=== PATIENT | male | born 1970 | race Caucasian/White ===

== ENCOUNTER → 2017-11-04 | Outpatient (CLI) | payer BC ==
[~2017-11-04] MED LIST: MELO7.5T5 PO
--- NOTE | 2017-11-04 12:48 | DIAGNOSTIC IMAGING REPORT ---
LUMBAR SPINE W/O CONTRAST HISTORY: Pain. Neuropathy. LOWER BACK PAIN TECHNIQUE: Multiplanar multisequence MRI of the lumbar spine was performed without the use of contrast. COMPARISON: None. FINDINGS: For the purpose of the report the L5-S1 disc space will be located on axial image 24 of 25. Signal characteristics of the vertebral bodies are within normal limits. Significant degenerative disc change L5-S1. Mild disc desiccation throughout the remaining intervertebral disc space levels. L1-L2: No significant central canal or neural foraminal narrowing. L2-L3: No significant central canal or neural foraminal narrowing. L3-L4: No significant central canal or neural foraminal narrowing. L4-L5: No significant central canal or neural foraminal narrowing. L5-S1: Right central disc herniation. Moderate displacement right S1 nerve root with a moderate impact upon the anterior thecal sac. Moderate to rather significant osteophytic narrowing of the neuroforamina bilaterally. Considerable hypertrophy change of the posterior facets. IMPRESSION: 1. Right central disc herniation L5-S1 creating moderate displacement of the right S1 nerve root and moderate impact upon the anterior thecal sac. 2. Considerable osteophytic narrowing of the neuroforamina bilaterally at L5-S1 accentuated by the lateral bulging disc component. 3. The remainder the lumbar spine is unremarkable. The above report was generated using voice recognition software. It may contain grammatical, syntax or spelling errors. Electronically signed by: Rik Samuels M.D. 11/04/2017 12:46 PM Dictated Date/Time: 11/04/2017 12:40 PM
== END | disposition home or self-care (01) ==
LOC: C.MRIBC 11:53
PROVIDERS: ATTEND Physician Assistant Medical
DX: M51.16 Intervertebral disc disorders with radiculopathy, lumbar region (principal); M54.5 Low back pain

== ENCOUNTER 2021-09-20 16:46 | Inpatient (IN) ==
[2021-09-20] MEDS ORDERED: SODIUM CHLORIDE 0.9% 1000ML 1,000 ML IV ONE ×2 (17:17→19:26)
--- NOTE | 2021-09-20 17:17 | Emergency Department Note ---
Impression & Plan Infection of scrotum, Hyperglycemia ED Provider Note Name: ASHLEIGH GIRON Age: 51 Sex: M Arrives Via: Walk-In Informant: Patient ED Provider: Misha Villagomez MD Chief Complaint: Groin infection Impression: As per impressions above Medical Decision Makin-year-old gentleman with no significant past medical history is on no medications arrives for evaluation of a right groin infection. On examination he is a large cellulitis of the right scrotum extending onto the perineum. There is no fluctuance however given location and findings CT was indicated. CT does not reveal any clear abscess but there is quite amount of inflammation. Given these findings I do think that it is reasonable to proceed with IV antibiotics and hospitalization. I did discuss with the urologist who felt this was reasonable. I did reviewed it with the hospitalist who will bring the patient in for further management. Unclear if the hyperglycemia is an acute reaction or whether he has some underlying insulin resistance. I did discuss this with the patient and will be further addressed by hospitalist service. Prior Medical Record and Triage/Nursing Notes reviewed by Me Additional history obtained from chart Differentials: Abscess, cellulitis, Leah's, DVT, sepsis, diabetes, underlying immunosuppression other pathologies. Vital Signs: reviewed and remarkable for tachycardia Interventions: Normal saline bolus, Rocephin 2 g IV Labs:Reviewed and remarkable for mild WBC elevation Imaging:CT with IV contrast reveals infection right scrotum and perineum as per radiologist read below Consults:Dr. Plummer of [facility] urology agrees with Rocephin IV and hospitalization, Dr. Mcqueen of [facility] hospitalist service agrees to evaluate for hospitalization Plan: Disposition:Hospitalization. Condition: Good History of Present Illness:51-year-old male arrives for evaluation of groin swelling. Patient notes 4 to 5 days of increasing swelling in the right groin. Pain with movement worse with walking and sitting. Better with rest. Does note he had a small pustule above his suprapubic region a couple days ago which he popped without issues. He states that he feels some mild illness but otherwise no fevers, chills, nausea, vomiting, abdominal pain, back pain, syncope, chest pain, shortness breath or other symptoms he has had no recent swelling in his legs nor calf pain. Patient denies a history of significant infections other than when he is 10 years old and had pneumonia. He is on no medications daily and takes periodic multivitamins. He denies diabetes or other chronical medical problems. Patient is taken no medications prior to arrival ROS: See above HPI for pertinent positives & negatives. A total of 10 systems r eviewed and were otherwise negative. 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 EYES: No scleral icterus, unremarkable pupils. ENT: Mucous membranes moist, no nasal congestion. NECK: No masses appreciated, nomeningismus, trachea is midline. RESPIRATORY: No dyspnea. Clear to auscultation and equal bilaterally. No wheeze, no rhonchi. CARDIOVASCULAR: Regular rate and rhythm.No murmurs, rubs, gallops appreciated. GASTROINTESTINAL: Abdomen soft, non-tender, no peritonitis.Bowel sounds positive.No masses appreciated. BACK: No midline tenderness, no CVA tenderness : Large 4-6 cm indurated firm swelling right lateral scrotum abuts perineum with cellulitis surrounding. No fluctuance to this. EXTREMITIES: Normal motion all extremities, no cyanosis, no edema. NEUROLOGIC: Alert and oriented, no acute motor or sensory deficits, no focal weakness, cranial nerves grossly intact. SKIN: No rash, no jaundice, no diaphoresis. PSYCH: Appropriate GCS: 15 ED Course: Times/Reassessments: Patient stable and comfortable he is agreeable to hospitalization. 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 Feels Safe at Home: Yes Allergies Allergies Allergy/AdvReac Type Severity Reaction Status Date / Time aspirin Allergy Unknown Verified 09/20/21 21:09 Penicillins Allergy Unknown Verified 09/20/21 21:07 coconut Allergy Hives Unverified 09/20/21 21:07 Home Meds Home Medications Medication Instructions Recorded Confirmed Mariel Do With Vit D 2 tabs PO AMPM 09/20/21 09/20/21 Inno Shred 2 tab PO QAM 09/20/21 09/20/21 Night Shred Black 2 tab PO QPM 09/20/21 09/20/21 cider 2 tab PO AMPM 09/20/21 09/20/21 [id number] 500 mg-100 mcg-300 mg-60 mg tab (Apple Cider Vinegar Plus) Results & Data (ED) Vital Signs Vital Signs - 24 hr 09/20/21 16:46 09/20/21 16:48 09/20/21 18:46 Temperature 35.9 C L Temperature Source Temporal Artery Scan Pulse Rate 101 H Pulse Rate [Apical] 98 H 98 H Pulse Rhythm Regular Pulse Strength Normal Respiratory Rate 20 20 20 Respiratory Effort / Characteristics Non-Labored Spontaneous Non-Labored Spontaneous Non-Labored Spontaneous Respiratory Depth Normal Normal Normal Respiratory Pattern Regular Regular Regular Blood Pressure 173/91 H Blood Pressure [Right Arm] 176/90 H 159/92 H Blood Pressure Mean 118 Blood Pressure Mean [Right Arm] 118 114 Blood Pressure Position Sitting Blood Pressure Position [Right Arm] Sitting Sitting Pulse Oximetry 98 96 95 Oxygen Delivery Method Room Air Room Air Room Air Sepsis Recent Fever Within 48 Hours No Sepsis New/Unexplained Change in Mental Status No Sepsis Action Taken by Nursing No Action Required 09/20/21 20:00 09/20/21 22:00 Temperature Temperature Source Pulse Rate Pulse Rate [Apical] 97 H 98 H Pulse Rhythm Pulse Strength Respiratory Rate 20 20 Respiratory Effort / Characteristics Non-Labored Spontaneous Non-Labored Spontaneous Respiratory Depth Normal Normal Respiratory Pattern Regular Regular Blood Pressure Blood Pressure [Right Arm] 157/90 H 159/92 H Blood Pressure Mean Blood Pressure Mean [Right Arm] 112 114 Blood Pressure Position Blood Pressure Position [Right Arm] Sitting Sitting Pulse Oximetry 98 98 Oxygen Delivery Method Room Air Room Air Sepsis Recent Fever Within 48 Hours Sepsis New/Unexplained Change in Mental Status Sepsis Action Taken by Nursing Laboratory Data Result diagrams: 09/20/21 17:25 09/20/21 17:25 Lab Results 09/20/21 09/20/21 09/20/21 Range/Units 17:15 17:25 17:25 WBC (4.8-10.8) K/uL RBC (4.7-6.1) M/uL Hgb (14.0-18.0) g/dL Hct (42-52) % MCV (80-100) fL MCH (25-34) pg MCHC (32-36) g/dL RDW Std Deviation (36.4-46.3) fL RDW Coeff of Isabel (11.5-14.5) % Plt Count (130-400) K/uL MPV (7.4-10.4) fL Immature Gran % (Auto) % Neut % (Auto) % Lymph % (Auto) % [place] % (Auto) % Eos % (Auto) % Baso % (Auto) % Neut # (Auto) (1.4-6.5) K/uL Lymph # (Auto) (1.2-3.4) K/uL [place] # (Auto) (0.11-0.59) K/uL Eos # (Auto) (0-0.5) K/uL Baso # (Auto) (0-0.2) K/uL Immature Gran # (Auto) (0.00-0.02) K/uL Sodium 135 L (136-145) mmol/L Potassium 3.6 (3.5-5.1) mmol/L Chloride 102 (98-107) mmol/L Carbon Dioxide 26 (21-32) mmol/L Anion Gap 7 (3-11) BUN 12 (6-23) mg/dl Creatinine 0.62 (0.6-1.4) mg/dl Est Cr Clr Drug Dosing 190.4 ml/min Est GFR ( Amer) 134.1 ml/min Est GFR (Non-Af Amer) 115.7 ml/min BUN/Creatinine Ratio 19.4 (10-20) Glucose 236 H (70-99(Fasting)) mg/dl Lactate (0.4-2.0) mmol/L Calcium 8.5 (8.5-10.1) mg/dl Magnesium (1.7-2.4) mg/dl Total Bilirubin (0.2-1.0) mg/dl Direct Bilirubin (0-0.2) mg/dl AST (13-39) U/L ALT (7-52) U/L Alkaline Phosphatase (34-104) U/L C-Reactive Protein 7.25 H (0-0.5) mg/dl Total Protein (6.0-8.3) gm/dl Albumin (3.4-5.0) gm/dl Procalcitonin < 0.05 (0-0.5) ng/ml TSH (0.300-4.500) uIu/ml Urine Color Yellow Urine Appearance Clear (Clear) Urine pH 5.0 (4.5-7.5) Ur Specific [place] > 1.045 H (1.000-1.030) Urine Protein Negative (Negative) Urine Glucose (UA) 3+ H (Negative) Urine Ketones 1+ H (Negative) Urine Blood Negative (Negative) Urine Nitrite Negative (Negative) Urine Bilirubin Negative (Negative) Urine Urobilinogen Negative (Negative) Ur Leukocyte Esterase Negative (Negative) SARS-CoV-2, RNA, NAAT (NEGATIVE) 09/20/21 09/20/21 09/20/21 Range/Units 17:25 17:25 17:25 WBC 12.26 H (4.8-10.8) K/uL RBC 4.75 (4.7-6.1) M/uL Hgb 14.3 (14.0-18.0) g/dL Hct 42.2 (42-52) % MCV 88.8 (80-100) fL MCH 30.1 (25-34) pg MCHC 33.9 (32-36) g/dL RDW Std Deviation 41.1 (36.4-46.3) fL RDW Coeff of Isabel 12.6 (11.5-14.5) % Plt Count 252 (130-400) K/uL MPV 9.7 (7.4-10.4) fL Immature Gran % (Auto) 0.2 % Neut % (Auto) 77.9 % Lymph % (Auto) 11.6 % [place] % (Auto) 8.9 % Eos % (Auto) 1.3 % Baso % (Auto) 0.1 % Neut # (Auto) 9.55 H (1.4-6.5) K/uL Lymph # (Auto) 1.42 (1.2-3.4) K/uL [place] # (Auto) 1.09 H (0.11-0.59) K/uL Eos # (Auto) 0.16 (0-0.5) K/uL Baso # (Auto) 0.01 (0-0.2) K/uL Immature Gran # (Auto) 0.03 H (0.00-0.02) K/uL Sodium (136-145) mmol/L Potassium (3.5-5.1) mmol/L Chloride (98-107) mmol/L Carbon Dioxide (21-32) mmol/L Anion Gap (3-11) BUN (6-23) mg/dl Creatinine (0.6-1.4) mg/dl Est Cr Clr Drug Dosing ml/min Est GFR ( Amer) ml/min Est GFR (Non-Af Amer) ml/min BUN/Creatinine Ratio (10-20) Glucose (70-99(Fasting)) mg/dl Lactate 0.8 (0.4-2.0) mmol/L Calcium (8.5-10.1) mg/dl Magnesium 1.7 (1.7-2.4) mg/dl Total Bilirubin 0.6 (0.2-1.0) mg/dl Direct Bilirubin 0.1 (0-0.2) mg/dl AST 16 (13-39) U/L ALT 21 (7-52) U/L Alkaline Phosphatase 95 (34-104) U/L C-Reactive Protein (0-0.5) mg/dl Total Protein 6.6 (6.0-8.3) gm/dl Albumin 3.9 (3.4-5.0) gm/dl Procalcitonin (0-0.5) ng/ml TSH (0.300-4.500) uIu/ml Urine Color Urine Appearance (Clear) Urine pH (4.5-7.5) Ur Specific [place] (1.000-1.030) Urine Protein (Negative) Urine Glucose (UA) (Negative) Urine Ketones (Negative) Urine Blood (Negative) Urine Nitrite (Negative) Urine Bilirubin (Negative) Urine Urobilinogen (Negative) Ur Leukocyte Esterase (Negative) SARS-CoV-2, RNA, NAAT (NEGATIVE) 09/20/21 09/20/21 Range/Units 17:25 20:54 WBC (4.8-10.8) K/uL RBC (4.7-6.1) M/uL Hgb (14.0-18.0) g/dL Hct (42-52) % MCV (80-100) fL MCH (25-34) pg MCHC (32-36) g/dL RDW Std Deviation (36.4-46.3) fL RDW Coeff of Isabel (11.5-14.5) % Plt Count (130-400) K/uL MPV (7.4-10.4) fL Immature Gran % (Auto) % Neut % (Auto) % Lymph % (Auto) % [place] % (Auto) % Eos % (Auto) % Baso % (Auto) % Neut # (Auto) (1.4-6.5) K/uL Lymph # (Auto) (1.2-3.4) K/uL [place] # (Auto) (0.11-0.59) K/uL Eos # (Auto) (0-0.5) K/uL Baso # (Auto) (0-0.2) K/uL Immature Gran # (Auto) (0.00-0.02) K/uL Sodium (136-145) mmol/L Potassium (3.5-5.1) mmol/L Chloride (98-107) mmol/L Carbon Dioxide (21-32) mmol/L Anion Gap (3-11) BUN (6-23) mg/dl Creatinine (0.6-1.4) mg/dl Est Cr Clr Drug Dosing ml/min Est GFR ( Amer) ml/min Est GFR (Non-Af Amer) ml/min BUN/Creatinine Ratio (10-20) Glucose (70-99(Fasting)) mg/dl Lactate (0.4-2.0) mmol/L Calcium (8.5-10.1) mg/dl Magnesium (1.7-2.4) mg/dl Total Bilirubin (0.2-1.0) mg/dl Direct Bilirubin (0-0.2) mg/dl AST (13-39) U/L ALT (7-52) U/L Alkaline Phosphatase (34-104) U/L C-Reactive Protein (0-0.5) mg/dl Total Protein (6.0-8.3) gm/dl Albumin (3.4-5.0) gm/dl Procalcitonin (0-0.5) ng/ml TSH 2.461 (0.300-4.500) uIu/ml Urine Color Urine Appearance (Clear) Urine pH (4.5-7.5) Ur Specific [place] (1.000-1.030) Urine Protein (Negative) Urine Glucose (UA) (Negative) Urine Ketones (Negative) Urine Blood (Negative) Urine Nitrite (Negative) Urine Bilirubin (Negative) Urine Urobilinogen (Negative) Ur Leukocyte Esterase (Negative) SARS-CoV-2, RNA, NAAT NEGATIVE (NEGATIVE) Administered Medications Discontinued Medications Sodium Chloride (Nss 1000ml) 1,000 mls @ 999 mls/hr IV .Q1H1M ONE Stop: 09/20/21 18:17 Last Infusion: 09/20/21 19:17 Dose: 0 mls/hr Documented by: [id number] Admin: 09/20/21 17:36 Dose: 999 mls/hr Documented by: [id number] Ceftriaxone Sodium (Rocephin) 2,000 mg in 70 mls @ 140 mls/hr IV NOW STA Stop: 09/20/21 19:38 Last Infusion: 09/20/21 20:50 Dose: 0 mls/hr Documented by: [id number] Admin: 09/20/21 19:34 Dose: 140 mls/hr Documented by: [id number] Sodium Chloride (Nss 1000ml) 1,000 mls @ 999 mls/hr IV .Q1H1M ONE Stop: 09/20/21 20:26 Last Infusion: 09/20/21 20:51 Dose: 0 mls/hr Documented by: [id number] Admin: 09/20/21 19:39 Dose: 999 mls/hr Documented by: [id number] Cefepime HCl (Maxipime) 2,000 mg in 20 mls @ 5 mls/min IV NOW STA; Protocol Stop: 09/20/21 21:29 Last Admin: 09/20/21 21:41 Dose: 5 mls/min Documented by: [id number] Insulin Glargine (Insulin Glargine Solostar 100 Units/Ml 3 Ml Pen) 10 units SC NOW STA Stop: 09/20/21 21:22 Last Admin: 09/20/21 22:44 Dose: 10 units Documented by: [id number] Cosigned by: [id number] Ioversol (Optiray 320 100ml) 95 ml IV ONCE ONE Stop: 09/20/21 18:31 Last Admin: 09/20/21 18:33 Dose: 95 ml Documented by: [id number] Ketorolac Tromethamine (Ketorolac Tromethamine 15 Mg/Ml Vial) 15 mg IV NOW ONE Stop: 09/20/21 22:06 Last Admin: 09/21/21 00:08 Dose: 15 mg Documented by: [id number] Lisinopril (Lisinopril 2.5 Mg Tab) 2.5 mg PO ONE STA Stop: 09/20/21 21:27 Last Admin: 09/20/21 22:43 Dose: 2.5 mg Documented by: [id number] Imaging Data Radiologist's Impression: Pelvis CT 09/20/21 17:12 CT pelvis w/IV con only HISTORY: Right scrotal/perineal infection TECHNIQUE: Multiaxial CT images of the pelvis were performed following the intravenous administration of 95 cc of Optiray 320 and reformatted in the sagittal and coronal plane at the workstation by the radiologist. COMPARISON STUDY: None. FINDINGS: There is subcutaneous fat stranding, skin thickening, subcutaneous edema seen within the right scrotum/perineum. No loculated fluid collections to suggest an abscess. No soft tissue gas identified at this time. Mild right inguinal lymphadenopathy which is likely reactive. The bladder is unremarkable. The prostate gland is normal in size. No pelvic free fluid. The visualized loops of bowel show no wall thickening or obstruction. Normal appendix. Small fat- containing umbilical hernia is noted. No fractures within the visualized osseous structures. IMPRESSION: Subcutaneous fat stranding, skin thickening, and subcutaneous edema within the right scrotum/perineum suggestive of a cellulitis. No loculated fluid collections to suggest an abscess. A developing Leah's gangrene is considere d less likely given the lack of soft tissue gas but is not entirely excluded. ACT 112: Negative or not required by law. Electronically signed by: Andi Mckay M.D. 09/20/2021 6:55 PM Chest X-Ray 09/20/21 20:20 XR chest 1V portable HISTORY: sepsis COMPARISON: None. FINDINGS: No pneumothorax. No pleural effusions. The cardiac silhouette is mildly enlarged. No focal lung consolidations to suggest pneumonia. No evidence for pulmonary edema. No acute rib fractures. Degenerative changes seen within the right shoulder. IMPRESSION: Mild cardiomegaly. ACT 112: Negative or not required by law. Electronically signed by: Andi Mckay M.D. 09/20/2021 8:57 PM Discharge Plan Visit Data Chief Complaint: Skin Problem Stated Complaint: ABSCESS IN GROIN AREA,PAINFUL,SWELLING,REF BY FATIMAH ED Provider: Misha Villagomez Discharge Problem: Infection of scrotum, Hyperglycemia Patient Disposition: Admitted As Inpatient Discharge Instructions Interventions: ED Discharge Assessment Last Done: 09/20/21 23:54
[2021-09-20 17:39] LABS: Basophils # (auto) 0.01 K/uL (0-0.2); Basophils % (auto) 0.1 %; Eosinophils # (auto) 0.16 K/uL (0-0.5); Eosinophils % (auto) 1.3 %; Hematocrit (blood only) 42.2 % (42-52); Hemoglobin 14.3 g/dL (14.0-18.0); Immature Granulocytes # (auto) 0.03 K/uL (0.00-0.02); Immature Granulocytes % (auto) 0.2 %; Lymphocytes # (auto) 1.42 K/uL (1.2-3.4); Lymphocytes % (auto) 11.6 %; Mean Corpuscular Hemoglobin 30.1 pg (25-34); Mean Corpuscular Hgb Conc 33.9 g/dL (32-36); Mean Corpuscular Volume 88.8 fL (80-100); Mean Platelet Volume 9.7 fL (7.4-10.4); Monocytes # (auto) 1.09 K/uL (0.11-0.59); Monocytes % (auto) 8.9 %; Neutrophils # (auto) 9.55 K/uL (1.4-6.5); Neutrophils % (auto) 77.9 %; Platelet Count 252 K/uL (130-400); RDW Coefficient of Variation 12.6 % (11.5-14.5); RDW Standard Deviation 41.1 fL (36.4-46.3); Red Blood Count 4.75 M/uL (4.7-6.1); White Blood Count 12.26 K/uL (4.8-10.8)
[2021-09-20 17:47] LABS: Appearance Urine Clear (Clear); Bilirubin Urine Negative (Negative); Blood Urine Negative (Negative); Color Urine Yellow; Glucose Urine UA 3+ (Negative); Ketones Urine 1+ (Negative); Leukocyte Esterase Urine Negative (Negative); Nitrite Urine Negative (Negative); Protein Urine Negative (Negative); Specific Gravity Urine > 1.045 (1.000-1.030); Urobilinogen Urine Negative (Negative)
[2021-09-20 18:01] LABS: BUN Creatinine Ratio 19.4 (10-20); C Reactive Protein 7.25 mg/dl (0-0.5); Calcium 8.5 mg/dl (8.5-10.1); Creatinine Clr Calc Pharmacy 190.4 ml/min; Est GFR (African American) 134.1 ml/min; Est GFR (Non-African American) 115.7 ml/min; Potassium 3.6 mmol/L (3.5-5.1)
[2021-09-20] MEDS ORDERED: OPTIRAY 320 100ml IV ONE (18:30)
--- NOTE | 2021-09-20 18:56 | CT Scan Report ---
CT pelvis w/IV con only HISTORY: Right scrotal/perineal infection TECHNIQUE: Multiaxial CT images of the pelvis were performed following the intravenous administration of 95 cc of Optiray 320 and reformatted in the sagittal and coronal plane at the workstation by the radiologist. COMPARISON STUDY: None. FINDINGS: There is subcutaneous fat stranding, skin thickening, subcutaneous edema seen within the ri ght scrotum/perineum. No loculated fluid collections to suggest an abscess. No soft tissue gas identi fied at this time. Mild right inguinal lymphadenopathy which is likely reactive. The bladder is unrem arkable. The prostate gland is normal in size. No pelvic free fluid. The visualized loops of bowel sh ow no wall thickening or obstruction. Normal appendix. Small fat-containing umbilical hernia is noted . No fractures within the visualized osseous structures. IMPRESSION: Subcutaneous fat stranding, skin thickening, and subcutaneous edema within the right scrotum/perineum suggestive of a cellulitis. No loculated fluid collections to suggest an abscess. A developing Fourn ier's gangrene is considered less likely given the lack of soft tissue gas but is not entirely exclud ed. ACT 112: Negative or not required by law. Electronically signed by: Andi Mckay M.D. 09/20/2021 6:55 PM
[2021-09-20] MEDS ORDERED: cefTRIAXone SODIUM 2,000 MG/70 ML BAG IV STA (19:09)
[2021-09-20 20:24] LABS: Albumin Level 3.9 gm/dl (3.4-5.0); Bilirubin Direct 0.1 mg/dl (0-0.2); Bilirubin,Total 0.6 mg/dl (0.2-1.0); Magnesium 1.7 mg/dl (1.7-2.4); Total Protein 6.6 gm/dl (6.0-8.3)
--- NOTE | 2021-09-20 20:58 | XRay Report ---
XR chest 1V portable HISTORY: sepsis COMPARISON: None. FINDINGS: No pneumothorax. No pleural effusions. The cardiac silhouette is mildly enlarged. No focal lung consolidations to suggest pneumonia. No evidence for pulmonary edema. No acute rib fractures. De generative changes seen within the right shoulder. IMPRESSION: Mild cardiomegaly. ACT 112: Negative or not required by law. Electronically signed by: Andi Mckay M.D. 09/20/2021 8:57 PM
[2021-09-20] MEDS ORDERED: INSULIN GLARGINE SOLOSTAR 100 UNITS/ML 3 ML PEN SC STA (21:21)
[2021-09-20] MEDS ORDERED: CEFEPIME 2,000 MG/20 ML VIAL IV STA (21:26)
[2021-09-20] MEDS ORDERED: lisinopril 2.5 MG TAB PO STA (21:26)
--- NOTE | 2021-09-20 21:53 | History & Physical Report ---
Date of Service September 20, 2021 Assessment & Plan (1) Sepsis: Plan: Secondary to scrotal/perineal infection History manipulation Hypertensive urgency Likely chronic BP elevation given cardiomegaly on CXR Hyperglycemia Likely new onset DM KUSUM on CPAP difficult airway as per records GMF CS, Cefepime, Doxycycline for now Urology consult Re: Scrotal/perineal infection (ER provider already in touch with Dr. Plummer who recommends antibiotic Rx.) N.p.o. after midnight until patient seen by urology in anticipation of any procedure. Baseline EKG, initiate lisinopril for BP control Basal insulin adjusted for n.p.o. status, ISS BG goal 1 10-1 40, check hemoglobi n A1c DVT prophylaxis. Lovenox subcu Full code Patient requesting updates from providers. Ms. Lyric Sofia, contact #[phone]. Text document was generated using [employer] voice recognition software. It may contain grammatical or spelling errors. Kindly contact undersigned for clarification of any documentation item in question. History of Present Illness Chief Complaint: Groin swelling Primary Care Provider: Dr. Sosa History obtained from patient, family, and records. Medical history significant KUSUM on CPAP, difficult airway as per records. 1 week history of painful right groin swelling with some chills. 2 weeks ago patient remembers popping a bump on his groin. Some lightheadedness. No chest pain, no S OB. Patient seen at the weekend clinic today. Right groin/scrotal swelling noted. Patient directed to the ER for evaluation. IV ceftriaxone administered at the ER. 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 Allergies Allergy/AdvReac Type Severity Reaction Status Date / Time aspirin Allergy Unknown Verified 09/20/21 21:09 Penicillins Allergy Unknown Verified 09/20/21 21:07 coconut Allergy Hives Unverified 09/20/21 21:07 Home Medications Medication Instructions Recorded Confirmed Type Mariel Do With Vit D 2 tabs PO AMPM 09/20/21 09/20/21 History Inno Shred 2 tab PO QAM 09/20/21 09/20/21 History Night Shred Black 2 tab PO QPM 09/20/21 09/20/21 History cider 2 tab PO AMPM 09/20/21 09/20/21 History pxmxeko-Lz-hzxeypudjvadpifs-tea 500 mg-100 mcg-300 mg-60 mg tab (Apple Cider Vinegar Plus) Past Med/Surg History Medical History (Updated 09/21/21 @ 03:51 by Jaskaran Nieves MD) Myofascial pain Social History Smoking Status: Never smoker Second Hand Exposure: No; Do You Dip or Chew Tobacco: No; Tobacco Cessation Education Requested by Patient: No Hx Alcohol Use: Yes Alcohol type: beer Hx Substance Use: No Preferred Language: Romanian Communication Ability: Effective Visual Impairment: No Limitations Hearing Ability: Normal Sfdc Architect Required: No Beliefs That Will Affect Care: None marital status: Current Living Situation: Spouse current occupational status: employed 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 Other Information That Helps Us Care for You: No Feels Safe at Home: Yes Safety Concerns: Feels Safe At This Time Assistive Devices: None Review of Systems Review of Systems: As per HPI, all 10 systems reviewed, all other ROS negative Physical Exam Physical Exam: GENERAL: Slightly anxious, morbidly obese, no respiratory distress SKIN: Normal color, warm HEENT: Seltzer palpebral conjunctivae, no ptosis, moist buccal mucosa NECK : Supple, short neck, no tenderness CHEST : CTA, no tenderness HEART : RRR, no obvious murmurs ABDOMEN: distention, nontender : Tender right perineal/scrotal swelling EXTREMITIES : Minimal LE swelling, no LE tenderness, no other conspicuous deformities noted NEUROLOGIC : Coherent, no facial asymmetry, no other gross focality Results & Data Results & Data ([facility]) Vital Signs (Past 12 Hours) Vital Signs Temp Pulse Pulse Resp BP BP Pulse Ox 09/20/21 20:00 97 H 20 157/90 H 98 09/20/21 18:46 98 H 20 159/92 H 95 09/20/21 16:48 35.9 C L 101 H 20 173/91 H 96 09/20/21 16:46 98 H 20 176/90 H 98 Laboratory Results Laboratory Results WBC 12.26 K/uL (4.8-10.8) H 09/20/21 17:25 RBC 4.75 M/uL (4.7-6.1) 09/20/21: Hgb 14.3 g/dL (14.0-18.0) 09/20/21: Hct 42.2 % (42-52) 09/20/21: MCV 88.8 fL (80-100) 09/20/21: MCH 30.1 pg (25-34) 09/20/21: MCHC 33.9 g/dL (32-36) 09/20/21: RDW Std Deviation 41.1 fL (36.4-46.3) 09/20/21 RDW Coeff of Isabel 12.6 % (11.5-14.5) 09/20/21: Plt Count 252 K/uL (130-400) 09/20/21: MPV 9.7 fL (7.4-10.4) 09/20/21: Immature Gran % (Auto) 0.2 % 09/20/21: Neut % (Auto) 77.9 % 09/20/21: Lymph % (Auto) 11.6 % 09/20/21: [place] % (Auto) 8.9 % 09/20/21: Eos % (Auto) 1.3 % 09/20/21: Baso % (Auto) 0.1 % 09/20/21: Neut # (Auto) 9.55 K/uL (1.4-6.5) H 09/20/21: Lymph # (Auto) 1.42 K/uL (1.2-3.4) 09/20/21: [place] # (Auto) 1.09 K/uL (0.11-0.59) H 09/20/21: Eos # (Auto) 0.16 K/uL (0-0.5) 09/20/21: Baso # (Auto) 0.01 K/uL (0-0.2) 09/20/21: Immature Gran # (Auto) 0.03 K/uL (0.00-0.02) H 09/20/21: Sodium 135 mmol/L (136-145) L 09/20/21 17:25 Potassium 3.6 mmol/L (3.5-5.1) 09/20/21 17:25 Chloride 102 mmol/L (98-107) 09/20/21 17:25 Carbon Dioxide 26 mmol/L (21-32) 09/20/21 17:25 Anion Gap 7 (3-11) 09/20/21 17:25 BUN 12 mg/dl (6-23) 09/20/21 17:25 Creatinine 0.62 mg/dl (0.6-1.4) 09/20/21 17:25 Est Cr Clr Drug Dosing 190.4 ml/min 09/20/21 17:25 Est GFR ( Amer) 134.1 ml/min 09/20/21 17:25 Est GFR (Non-Af Amer) 115.7 ml/min 09/20/21 17:25 BUN/Creatinine Ratio 19.4 (10-20) 09/20/21 17:25 Glucose 236 mg/dl (70-99(Fasting)) H 09/20/21 17:25 Lactate 0.8 mmol/L (0.4-2.0) 09/20/21 17:25 Calcium 8.5 mg/dl (8.5-10.1) 09/20/21 17:25 Magnesium 1.7 mg/dl (1.7-2.4) 09/20/21 17:25 Total Bilirubin 0.6 mg/dl (0.2-1.0) 09/20/21 17:25 Direct Bilirubin 0.1 mg/dl (0-0.2) 09/20/21 17:25 AST 16 U/L (13-39) 09/20/21 17:25 ALT 21 U/L (7-52) 09/20/21 17:25 Alkaline Phosphatase 95 U/L (34-104) 09/20/21 17:25 C-Reactive Protein 7.25 mg/dl (0-0.5) H 09/20/21 17:25 Total Protein 6.6 gm/dl (6.0-8.3) 09/20/21 17:25 Albumin 3.9 gm/dl (3.4-5.0) 09/20/21 17:25 Procalcitonin < 0.05 ng/ml (0-0.5) 09/20/21 17:25 TSH 2.461 uIu/ml (0.300-4.500) 09/20/21 17:25 Urine Color Yellow 09/20/21 17:15 Urine Appearance Clear (Clear) 09/20/21 17:15 Urine pH 5.0 (4.5-7.5) 09/20/21 17:15 Ur Specific [place] > 1.045 (1.000-1.030) H 09/20/21 17:15 Urine Protein Negative (Negative) 09/20/21 17:15 Urine Glucose (UA) 3+ (Negative) H 09/20/21 17:15 Urine Ketones 1+ (Negative) H 09/20/21 17:15 Urine Blood Negative (Negative) 09/20/21 17:15 Urine Nitrite Negative (Negative) 09/20/21 17:15 Urine Bilirubin Negative (Negative) 09/20/21 17:15 Urine Urobilinogen Negative (Negative) 09/20/21 17:15 Ur Leukocyte Esterase Negative (Negative) 09/20/21 17:15 SARS-CoV-2, RNA, NAAT NEGATIVE (NEGATIVE) 09/20/21 20:[address] 09/20/21 17:12 CT pelvis w/IV con only HISTORY: Right scrotal/perineal infection TECHNIQUE: Multiaxial CT images of the pelvis were performed following the intravenous administration of 95 cc of Optiray 320 and reformatted in the sagittal and coronal plane at the workstation by the radiologist. COMPARISON STUDY: None. FINDINGS: There is subcutaneous fat stranding, skin thickening, subcutaneous edema seen within the right scrotum/perineum. No loculated fluid collections to suggest an abscess. No soft tissue gas identified at this time. Mild right inguinal lymphadenopathy which is likely reactive. The bladder is unremarkable. The prostate gland is normal in size. No pelvic free fluid. The visualized loops of bowel show no wall thickening or obstruction. Normal appendix. Small fat- containing umbilical hernia is noted. No fractures within the visualized osseous structures. IMPRESSION: Subcutaneous fat stranding, skin thickening, and subcutaneous edema within the right scrotum/perineum suggestive of a cellulitis. No loculated fluid collections to suggest an abscess. A developing Leah's gangrene is considered less likely given the lack of soft tissue gas but is not entirely excluded. ACT 112: Negative or not required by law. Electronically signed by: Andi Mckay M.D. 09/20/2021 6:55 PM Chest X-Ray 09/20/21 20:20 XR chest 1V portable HISTORY: sepsis COMPARISON: None. FINDINGS: No pneumothorax. No pleural effusions. The cardiac silhouette is mildly enlarged. No focal lung consolidations to suggest pneumonia. No evidence for pulmonary edema. No acute rib fractures. Degenerative changes seen within the right shoulder. IMPRESSION: Mild cardiomegaly. ACT 112: Negative or not required by law. Electronically signed by: Andi Mckay M.D. 09/20/2021 8:57 PM
[2021-09-20] MEDS ORDERED: DOXYCYCLINE HYCLATE 100 MG in DEXTROSE 5% 100 ML IV STA (21:57)
[2021-09-20] MEDS ORDERED: KETOROLAC TROMETHAMINE 15 MG/ML VIAL IV ONE (22:05)
[2021-09-21] MEDS ORDERED: GLUCOSE 40% GEL 15 GM TUBE PO PRN (00:01)
[2021-09-21] MEDS ORDERED: DEXTROSE 50% 50 ML SYRINGE IV PRN (00:01)
[2021-09-21] MEDS ORDERED: GLUCOSE 10 TABS/TUBE PO PRN (00:01)
[2021-09-21] MEDS ORDERED: PROMETHAZINE HCL 12.5 MG in SODIUM CHLORIDE 0.9% 50 ML IV PRN (00:01)
[2021-09-21] MEDS ORDERED: GLUCAGON FOR INJ 1 MG VIAL SQ PRN (00:01)
[2021-09-21] MEDS ORDERED: LORazepam 0.5 MG/1 ML VIAL IV PRN (00:01)
[2021-09-21] MEDS ORDERED: traMADol HCL 50 MG TABLET PO PRN (00:01)
[2021-09-21] MEDS ORDERED: CARBOHYDRATES FOR HYPOGLYCEMIA PO PRN (00:01)
[2021-09-21] MEDS ORDERED: ACETAMINOPHEN 325 MG TAB PO PRN (00:01)
[2021-09-21] MEDS ORDERED: MoRPHine SULFATE 4 MG/ML 1 ML CARP\\VIAL IV PRN ×2 (00:01→08:33)
[2021-09-21] MEDS: LACTATED RINGER'S 1,000 ML IV SCH ×2 (00:15→17:12)
[2021-09-21] MEDS: INSULIN ASPART PER UNIT SC SCH ×5 (00:47→22:21)
[2021-09-21] MEDS ORDERED: INSULIN GLARGINE SOLOSTAR 100 UNITS/ML 3 ML PEN SC STA (03:43)
[2021-09-21] MEDS: KETOROLAC TROMETHAMINE 10 MG TABLET PO PRN ×2 (08:29→20:49)
[2021-09-21] MEDS ORDERED: ACETAMINOPHEN 1000 MG/100 ML IV IV PRN (08:32)
[2021-09-21] MEDS ORDERED: ACETAMINOPHEN 1,000 MG/100 ML VIAL IV PRN (08:45)
[2021-09-21 09:35] LABS: Basophils # (auto) 0.01 K/uL (0-0.2); Basophils % (auto) 0.1 %; Eosinophils # (auto) 0.18 K/uL (0-0.5); Eosinophils % (auto) 1.9 %; Hematocrit (blood only) 39.1 % (42-52); Immature Granulocytes # (auto) 0.02 K/uL (0.00-0.02); Immature Granulocytes % (auto) 0.2 %; Lymphocytes # (auto) 1.34 K/uL (1.2-3.4); Lymphocytes % (auto) 14.3 %; Mean Corpuscular Hemoglobin 29.9 pg (25-34); Mean Corpuscular Hgb Conc 33.2 g/dL (32-36); Mean Corpuscular Volume 89.9 fL (80-100); Monocytes # (auto) 0.97 K/uL (0.11-0.59); Monocytes % (auto) 10.3 %; Neutrophils # (auto) 6.86 K/uL (1.4-6.5); Neutrophils % (auto) 73.2 %; Platelet Count 233 K/uL (130-400); RDW Coefficient of Variation 12.8 % (11.5-14.5); RDW Standard Deviation 42.4 fL (36.4-46.3); Red Blood Count 4.35 M/uL (4.7-6.1); White Blood Count 9.38 K/uL (4.8-10.8)
[2021-09-21] MEDS: ENOXAPARIN INJ 40 MG/0.4 ML SYR SQ SCH (09:35)
[2021-09-21] MEDS: DOXYCYCLINE HYCLATE 100 MG CAP PO SCH ×2 (09:35→20:45)
[2021-09-21] MEDS: CEFEPIME 2,000 MG in SYRINGE 0 ML IV SCH ×2 (09:36→22:22)
[2021-09-21 09:55] LABS: BUN Creatinine Ratio 21.3 (10-20); Calcium 7.8 mg/dl (8.5-10.1); Creatinine Clr Calc Pharmacy 194.1 ml/min; Est GFR (Non-African American) 116.4 ml/min; Potassium 3.4 mmol/L (3.5-5.1)
[2021-09-21] MEDS ORDERED: POTASSIUM CHLORIDE CRTAB 20 MEQ TABCR PO ONE (10:02)
--- NOTE | 2021-09-21 10:16 | Urology Consultation ---
Date of Consultation September 21, 2021 Assessment & Plan (1) Cellulitis: Cellulitis of the perineum Physical evaluation reveals that this is predominantly in the perineum and does not really involve the scrotum, regardless, this seems to be a cellulitis not an drainable abscess nor any concern for active Leah's gangrene I suspect that undiagnosed diabetes is a contributor, particularly as he has had other skin infections in the past We discussed timeframe for expected improvementlikely several days to a week before he entirely has relief of symptoms Discussed the need for continued antibiotic management as well as tight blood glucose control There is no surgical intervention indicated for this as it is a simple skin infection It does not involve any significant urinary structures We will defer to the hospitalist for the remainder of management unless there is a significant change, please call us if any issues History of Present Illness Attending Physician: Magnus Abdullahi MD History of Present Illness 51-year-old male who presented to the emergency room with discomfort in his perineum with palpable swelling No fevers or chills Overall reports that he is in good health, however he has had persistently elevated blood glucose levels since arrivalsuspicion of undiagnosed diabetes He has a prior history of and skin infections and abscesses including one in the right axillary area and a prior infection of the groin which spontaneously resolved Allergies Allergy/AdvReac Type Severity Reaction Status Date / Time aspirin Allergy Unknown Verified 09/20/21 21:09 Penicillins Allergy Unknown Verified 09/20/21 21:07 coconut Allergy Hives Unverified 09/20/21 21:07 Home Medications Medication Instructions Recorded Confirmed Type Mariel Do With Vit D 2 tabs PO AMPM 09/20/21 09/20/21 History Inno Shred 2 tab PO QAM 09/20/21 09/20/21 History Night Shred Black 2 tab PO QPM 09/20/21 09/20/21 History cider 2 tab PO AMPM 09/20/21 09/20/21 History awxxinm-Ql-nzotkpwnxtisneui-tea 500 mg-100 mcg-300 mg-60 mg tab (Apple Cider Vinegar Plus) Patient History Medical History Myofascial pain Social History Smoking Status: Never smoker Second Hand Exposure: No; Do You Dip or Chew Tobacco: No; Tobacco Cessation Education Requested by Patient: No Hx Alcohol Use: Yes Alcohol type: beer Hx Substance Use: No Preferred Language: Indonesian Communication Ability: Effective Visual Impairment: No Limitations Hearing Ability: Normal Media Traffic Manager Required: No Beliefs That Will Affect Care: None marital status: Current Living Situation: Spouse current occupational status: employed 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 Other Information That Helps Us Care for You: No Feels Safe at Home: Yes Safety Concerns: Feels Safe At This Time Assistive Devices: Glasses Review of Systems Constitutional: no fever, no chills and no fatigue Eyes: no worsening vision Ear, Nose, Mouth, Throat: no facial pain and no pain with swallowing Respiratory: no cough and no dyspnea Cardiovascular: no chest pain and no palpitations Gastrointestinal: no abdominal pain, no nausea and no vomiting Musculoskeletal: no back pain Integumentary: no rash and no urticaria He does have erythema and swelling of the perineumright greater than left Neurologic: no gait abnormality and no unsteadiness Psychiatric: no behavioral changes and no depression Endocrine: no fatigue Physical Exam Physical Exam: Radiation and mild erythema of the perineum, right greater than left, area of induration is approximately 2 cm in width by 7 cm in length, there is no fluctuance there is no discharge, there is no crepitus This does not really extend onto the scrotum There does not appear to be any skin breakdown or necrosis There is no drainable collection Constitutional: well developed and well nourished Neck: neck nontender Respiratory: normal respiratory effort; no respiratory distress and does not use accessory muscles Cardiovascular: Rate/Rhythm: regular rate Vessels: radial pulses present Extremities: no edema Gastrointestinal (Abdomen): Inspection/Auscultation: abdomen normal to inspection Percussion/Palpation: abdomen soft; abdomen nontender and no guarding Musculoskeletal: Head/Neck/Chest: normocephalic and head atraumatic Extremities: extremities normal to inspection Skin: no rashes and no lesions Trauma: no evidence of skin trauma Neurologic: awake; not obtunded Speech / Cognition: normal speech Motor/Sensory: no tremor Psychiatric: Orientation: alert and oriented x 3 Genitourinary: no CVA tenderness Lymphatic: no lymphadenopathy Results & Data ([facility]) Vital Signs (Past 12 Hours) Vital Signs Temp Pulse Pulse Resp BP BP Pulse Ox 09/21/21 07:30 36.7 C 98 H 20 151/83 H 94 09/21/21 03:45 98 H 116/66 09/20/21 23:30 36.6 C 107 H 18 178/95 H 98 PG Care Time/CCT Total # of Minutes Spent Total Time Spent with Patient: Total time spent is greater than 50% in coordination of care (as documented) at patient's floor/unit and/or counseling patient: Coding Level of Care Code 74182 Inpt Consult Level 4 Diagnoses Cellulitis L03.90
[2021-09-21] MEDS ORDERED: Nursing to Pharmacy Communication SCH (11:45)
--- NOTE | 2021-09-21 14:53 | Hospitalist Progress Note ---
Date of Service September 21, 2021 Assessment & Plan (1) Sepsis: Plan: Scrotal/perineal Cellulitis --Pelvic CT:Subcutaneous fat stranding, skin thickening, and subcutaneous edema within the right scrotum/perineum suggestive of a cellulitis. No loculated fluid collections to suggest an abscess. A developing Leah's gangrene is considered less likely given the lack of soft tissue gas but is not entirely excluded. --Blood Culture:Pending Continue cefepime, doxycycline Continue IV fluids Pain control Appreciate urology input Hypertensive urgency Situational secondary to pain Vs chronic given Cardiomegaly/KUSUM Not on any meds at home Started on Lisinopril Hyperglycemia Likely new onset DM HbA1C Pending Continue Insulin Monitor BGs KUSUM on CPAP DVT Px: Lovenox SQ Code Status Full code Admission and Anticipated Discharge Date Admission Date: September 20, 2021 Subjective Patient is seen and examined at bedside Reports having scrotal pain Denies any chest pain, , dizziness, nausea, abd pain Offers no other complaints Review of Systems Review of Systems: All systems reviewed & are unremarkable except as noted in Subjective Physical Exam Physical Exam: Physical Exam: Vitals signs as noted above General Appearance:Morbid obese, no apparent distress Head: normocephalic, Atraumatic Eyes: normal inspection, EOMI Neck: supple, Trachea midline Respiratory/Chest: Normal breath sounds, CTA Cardiovascular: S1, S2, No murmur Abdomen/GI:Soft, Non tender, Bowel sounds present :Scrotal erythema, tender Extremities/Musculoskeletal:normal inspection, no edema Neurologic/Psych:AAOX3, grossly no focal neurological deficits Skin: normal color, warm Results & Data Results & Data ([facility]) Vital Signs (Past 12 Hours) Vital Signs Temp Pulse Pulse Resp BP BP Pulse Ox 09/21/21 07:30 36.7 C 98 H 20 151/83 H 94 09/21/21 03:45 98 H 116/66 Laboratory Results Short CBC 09/20/21 09/21/21 Range/Units 17:25 08:44 WBC 12.26 H 9.38 (4.8-10.8) K/uL Hgb 14.3 13.0 L (14.0-18.0) g/dL Hct 42.2 39.1 L (42-52) % Plt Count 252 233 (130-400) K/uL BMP 09/20/21 09/21/21 17:25 08:44 Sodium 135 L 136 Potassium 3.6 3.4 L Chloride 102 107 Carbon Dioxide 26 24 BUN 12 13 Creatinine 0.62 0.61 Glucose 236 H 231 H Calcium 8.5 7.8 L Liver Function 09/20/21 Range/Units 17:25 Total Bilirubin 0.6 (0.2-1.0) mg/dl Direct Bilirubin 0.1 (0-0.2) mg/dl AST 16 (13-39) U/L ALT 21 (7-52) U/L Alkaline Phosphatase 95 (34-104) U/L Albumin 3.9 (3.4-5.0) gm/dl Urine 09/20/21 Range/Units 17:15 Urine Color Yellow Urine Appearance Clear (Clear) Urine pH 5.0 (4.5-7.5) Ur Specific [place] > 1.045 H (1.000-1.030) Urine Protein Negative (Negative) Urine Glucose (UA) 3+ H (Negative)
[2021-09-21] MEDS ORDERED: LACTATED RINGER'S 1,000 ML IV ONE (19:36)
[2021-09-21] MEDS ORDERED: INSULIN GLARGINE SOLOSTAR 100 UNITS/ML 3 ML PEN SC SCH (21:00)
[2021-09-21] MEDS: INSULIN GLARGINE SOLOSTAR 100 UNITS/ML 3 ML PEN SC SCH (22:21)
[2021-09-22 06:38] LABS: Hematocrit (blood only) 38.8 % (42-52); Hemoglobin 12.9 g/dL (14.0-18.0); Mean Corpuscular Hemoglobin 29.9 pg (25-34); Mean Corpuscular Hgb Conc 33.2 g/dL (32-36); Mean Corpuscular Volume 89.8 fL (80-100); Mean Platelet Volume 9.7 fL (7.4-10.4); Platelet Count 220 K/uL (130-400); RDW Coefficient of Variation 12.6 % (11.5-14.5); RDW Standard Deviation 41.1 fL (36.4-46.3); Red Blood Count 4.32 M/uL (4.7-6.1); White Blood Count 8.64 K/uL (4.8-10.8)
[2021-09-22 06:57] LABS: BUN Creatinine Ratio 21.7 (10-20); Creatinine Clr Calc Pharmacy 197.3 ml/min; Est GFR (African American) 135.9 ml/min; Est GFR (Non-African American) 117.2 ml/min; Potassium 3.5 mmol/L (3.5-5.1)
[2021-09-22 07:32] LABS: Estimated Average Glucose 286 mg/dl; Hemoglobin A1C 11.6 % (4.5-5.6)
[2021-09-22] MEDS ORDERED: lisinopril 5 MG TAB PO SCH (09:00)
[2021-09-22] MEDS: DOXYCYCLINE HYCLATE 100 MG CAP PO SCH (09:06)
[2021-09-22] MEDS: ENOXAPARIN INJ 40 MG/0.4 ML SYR SQ SCH (09:07)
[2021-09-22] MEDS: INSULIN GLARGINE SOLOSTAR 100 UNITS/ML 3 ML PEN SC SCH (09:07)
[2021-09-22] MEDS: INSULIN ASPART PER UNIT SC SCH ×3 (09:08→17:55)
[2021-09-22] MEDS: CEFEPIME 2,000 MG in SYRINGE 0 ML IV SCH (10:07)
--- NOTE | 2021-09-22 16:26 | Discharge Summary ---
Date of Service September 22, 2021 Admission HPI Per Admitting Provider History obtained from patient, family, and records. Medical history significant KUSUM on CPAP, difficult airway as per records. 1 week history of painful right groin swelling with some chills. 2 weeks ago patient remembers popping a bump on his groin. Some lightheadedness. No chest pain, no S OB. Patient seen at the weekend clinic today. Right groin/scrotal swelling noted. Patient directed to the ER for evaluation. IV ceftriaxone administered at the ER. 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 Data Allergies Allergy/AdvReac Type Severity Reaction Status Date / Time aspirin Allergy Unknown Verified 09/20/21 21:09 Penicillins Allergy Unknown Verified 09/20/21 21:07 coconut Allergy Hives Unverified 09/20/21 21:07 Consultations 09/20/21 19:28 ED Decision to Admit Stat 09/21/21 00:01 Consult Urology Routine Ordered Studies 09/20/21 17:12 CT pelvis w/IV con only Stat Home Health Attestation I certify that this patient is under my care and that I, or a physicians assistant athletic trainer working with me, had a face to-face encounter that meets the home health [id number] encounter requirements with this patient. The encounter with the patient was in whole, or in part, for the following medical condition, which is the primary reason for home health care (list medical condition): I certify that, based on my findings, the following services are medically necessary home health services: My clinical findings support the need for the above services because: Further, I certify that my clinical findings support that this patient is homebound (i.e. absences from home require considerable and taxing effort and are for medical reasons or baptist services or infrequently or of short duration when for other reasons) because: Certification for Home Health Services: Based on the above findings, I certify that this patient is confined to the home and needs intermittent longterm care, physical therapy and/or speech therapy or continues to need occupational therapy. The patient is under my care, and I have initiated the establishment of the plan of care. This patient will be followed by a physician who will periodically review the plan of care. Discharge Plan Discharge Items Patient Disposition: Home - Self-Care Reason For Visit: Cellulitis Discharge Diagnosis: Groin cellulitis Newly Diagnosed Diabetes, uncontrolled Sepsis, present on admission. Treated and resolved Obesity Condition on Discharge: Good Health Concerns: Diet, weight loss Diabetes Management (newly diagnosed) HTN management (newly diagnosed) Activity: Resume your previous activity Bathing Comment: Wash wound with soap and water. Do NOT soak in tap water. Keep clean/dry Exercise/Sports: Gradually increase as tolerated Driving/Machine Use: No limitations Weightbearing: Full weightbearing Non-emergency contact: Primary Care Provider Call non-emergency contact if: you have any medication questions, your rectal temperature is above 100.4, your wound has increased redness and your wound has increased drainage Follow-up/Referrals: Jessica Roman DO [Primary Care Provider] - Diet: Carb Consistent or DM2 Addtl Attending Provider Instructions: Please take your medications as prescribed Please keep a log book of your finger sticks and follow up with your Primary Care doctor for management of your diabetes Please talk to your PCP about diet, exercise, weight loss plan Pending Studies at Discharge: No Stand-Alone Forms: [facility] [email or web address], Smoking Cessation Medications and DC Order Prescriptions: New lisinopril [Zestril] 5 mg Tablet 5 mg PO QAM 30 Days Qty: 30 RF: 0 metformin 500 mg tablet 500 mg PO BIDWMEAL Qty: 60 RF: 0 glipizide 5 mg tablet 5 mg PO DAILY Qty: 30 RF: 0 cephalexin 750 mg capsule 750 mg PO TID 10 Days Qty: 30 RF: 0 Saccharomyces boulardii [Florastor] 250 mg capsule 250 mg PO DAILY 14 Days Qty: 14 RF: 0 (DME) blood-glucose meter [Accu-Chek Tanisha Plus Meter] Misc See Rx Instructions .Route Qty: 1 RF: 0 (DME) Accu-Chek Tanisha Plus test strp Strip See Rx Instructions .Route Qty: 50 RF: 0 (DME) lancets [Accu-Chek Fastclix Lancet Drum] Misc See Rx Instructions .Route Qty: 102 RF: 0 Continued Apple Cider Vinegar Plus [phone] Tablet 2 tab PO AMPM RF: 0 Mariel Ashwagandha With Vit D 2 tabs PO AMPM RF: 0 Night Shred Black tablet 2 tab PO QPM RF: 0 Inno Shred tablet 2 tab PO QAM RF: 0 Discharge Orders: Discharge Order (Routine); Ordered 09/22/21 Ordered By: Reinaldo Arguelles/Other Patient Handouts: Managing Type 2 Diabetes, Healthy Meals for Diabetes, Managing Your Glucose Level ..., Blood Sugar Monitoring and ... Admission Data Admit Date/Time: 09/20/21 22:03 Attending Provider: Reinaldo Guzman Admit Provider: Jaskaran Nieves Primary Care Provider: Jessica Roman Other Providers: Natty Marshall ; Isac Plummer ; Magnus Abdullahi
--- NOTE | 2021-09-22 16:31 | Discharge Summary ---
Date of Service September 22, 2021 Admission HPI Per Admitting Provider Chief Complaint: Groin swelling Primary Care Provider: Dr. Sosa History obtained from patient, family, and records. Medical history significant KUSUM on CPAP, difficult airway as per records. 1 week history of painful right groin swelling with some chills. 2 weeks ago patient remembers popping a bump on his groin. Some lightheadedness. No chest pain, no S OB. Patient seen at the weekend clinic today. Right groin/scrotal swelling noted. Patient directed to the ER for evaluation. IV ceftriaxone administered at the ER. Principal Diagnosis Groin Cellulitis Sepsis, present on admission with tachycardia, leukocytosis. Treated and resolved Newly diagnosed, poorly controlled diabetes Newly diagnosed, HTN Obesity, BMI 42 Discharge Exam Pleasant, no acute distress Groin with cellulitis and shallow skin break. Area with mild erythema, mild drainage Discharge Data Allergies Allergy/AdvReac Type Severity Reaction Status Date / Time aspirin Allergy Unknown Verified 09/20/21 21:09 Penicillins Allergy Unknown Verified 09/20/21 21:07 coconut Allergy Hives Unverified 09/20/21 21:07 Consultations 09/20/21 19:28 ED Decision to Admit Stat 09/21/21 00:01 Consult Urology Routine Ordered Studies 09/20/21 17:12 CT pelvis w/IV con only Stat Hospital Course Right Groin Cellulitis Sepsis. -CT Pelvis negative for abscess or juan's gangrene -Evaluated by Urology and felt to be simple cellulitis. No involvement of scrotum or vital structure -was placed on cefepime and doxycyline here -MRSA nare swab negative -No history of resistant skin infection -Sepsis present on admission was treated and resolved -Will discharge on Cefazolin for another 10 days. -Patient can clean the area with soap and water. NO Soaking in tap water. Keep area clean and dry (verbal instructions were provided to him) -Monitor daily for improvement Newly diagnosed DM -HA1c 11.6% -was placed on basal bolus insulin regimen while here -Discussed with patient, he would favor trial of oral medications. He will monitor his blood sugar and follow up with his PCP within 1 week -will discharge on metformin 500mg BID, glipizide 5mg daily -Carbohydrate controlled diet Newly diagnosed HTN -started on lisinopril 5mg daily with improvement -Again, follow up with PCP Obesity -BMI 42 -Certainly with his newly diagnosed DM and HTN, he would benefit from a diet, weight loss, exercise regimen. He should follow up with his PCP for referral to see a cardiac technician and ongoing counseling Discharge instructions reviewed with as well per patient request. Total Time Total Time Spent Total Time Spent (In Minutes): 40 Discharge Plan Discharge Items Patient Disposition: Home - Self-Care Reason For Visit: Cellulitis Discharge Diagnosis: Groin cellulitis Newly Diagnosed Diabetes, uncontrolled Sepsis, present on admission. Treated and resolved Obesity Condition on Discharge: Good Health Concerns: Diet, weight loss Diabetes Management (newly diagnosed) HTN management (newly diagnosed) Activity: Resume your previous activity Bathing Comment: Wash wound with soap and water. Do NOT soak in tap water. Keep clean/dry Exercise/Sports: Gradually increase as tolerated Driving/Machine Use: No limitations Weightbearing: Full weightbearing Non-emergency contact: Primary Care Provider Call non-emergency contact if: you have any medication questions, your rectal temperature is above 100.4, your wound has increased redness and your wound has increased drainage Follow-up/Referrals: Jessica Roman DO [Primary Care Provider] - Diet: Carb Consistent or DM2 Addtl Attending Provider Instructions: Please take your medications as prescribed Please keep a log book of your finger sticks and follow up with your Primary Care doctor for management of your diabetes Please talk to your PCP about diet, exercise, weight loss plan Pending Studies at Discharge: No Stand-Alone Forms: My [employer], Smoking Cessation Medications and DC Order Prescriptions: New lisinopril [Zestril] 5 mg Tablet 5 mg PO QAM 30 Days Qty: 30 RF: 0 metformin 500 mg tablet 500 mg PO BIDWMEAL Qty: 60 RF: 0 glipizide 5 mg tablet 5 mg PO DAILY Qty: 30 RF: 0 cephalexin 750 mg capsule 750 mg PO TID 10 Days Qty: 30 RF: 0 Saccharomyces boulardii [Florastor] 250 mg capsule 250 mg PO DAILY 14 Days Qty: 14 RF: 0 (DME) blood-glucose meter [Accu-Chek Tanisha Plus Meter] Misc See Rx Instructions .Route Qty: 1 RF: 0 (DME) Accu-Chek Tanisha Plus test strp Strip See Rx Instructions .Route Qty: 50 RF: 0 (DME) lancets [Accu-Chek Fastclix Lancet Drum] Misc See Rx Instructions .Route Qty: 102 RF: 0 Continued Apple Cider Vinegar Plus [phone] [id number] Tablet 2 tab PO AMPM RF: 0 Mariel Ashwagandha With Vit D 2 tabs PO AMPM RF: 0 Night Shred Black tablet 2 tab PO QPM RF: 0 Inno Shred tablet 2 tab PO QAM RF: 0 Discharge Orders: Discharge Order (Routine); Ordered 09/22/21 Ordered By: Reinaldo Arguelles/Other Patient Handouts: Managing Type 2 Diabetes, Healthy Meals for Diabetes, Managing Your Glucose Level ..., Blood Sugar Monitoring and ... Admission Data Admit Date/Time: 09/20/21 22:03 Attending Provider: Reinaldo Guzman Admit Provider: Jaskaran Nieves Primary Care Provider: Jessica Roman Other Providers: Natty Marshall ; Isac Plummer ; Magnus Abdullahi
== END 2021-09-22 18:00 | disposition home or self-care (01) | DRG 872 ==
LOC: ED 16:46 → SUATTDRO 22:03 → 3W 22:03